=== PATIENT | female | born 1970 | race Hispanic/Latino ===

== ENCOUNTER → 2025-08-13 | Outpatient (CLI) | payer OTHER ==
--- NOTE | 2025-08-13 13:44 | HMCIMG ---
EXAM: LUMBAR SPINE 2-3VWS REASON: Lower back pain. COMPARISON: None. TECHNIQUE: 3 views of the lumbar spine were obtained. FINDINGS: There is normal appearance of the lumbar vertebral bodies. Disc interspace heights are preserved. Alignment is normal. There are no visible fractures. Soft tissues appear unremarkable. IMPRESSION: 1. No acute fracture or malalignment 2. Osteopenia
--- NOTE | 2025-08-13 13:45 | HMCIMG ---
Exam: CERVICAL SPINE 2 VIEWS REASON: Neck pain,radiculopathy TECHNIQUE: 4 views were obtained including swimmer's view.. FINDINGS: There are normal appearing vertebral bodies. Interspace heights are well preserved. There are no visible fractures. Soft tissues appear unremarkable.There is mild osteopenia. IMPRESSION: 1. No acute fracture or malalignment 2. Mild osteopenia.
--- NOTE | 2025-08-13 13:47 | HMCIMG ---
SHOULDER COMP 2+VWS RT REASON: RT shoulder pain TECHNIQUE: 2 views were obtained. FINDINGS: There is no evidence of fracture or dislocation. There is no joint effusion. The soft tissues appear unremarkable. There is no evidence of a radiopaque foreign body. There is mild osteopenia. IMPRESSION: No acute findings. Mild osteopenia
== END | disposition home or self-care (01) ==
LOC: RAH 12:02
PROVIDERS: ATTEND Internal Medicine
DX: M13.811 Other specified arthritis, right shoulder (principal); M85.89 Other specified disorders of bone density and structure, multiple sites; M25.511 Pain in right shoulder
CPT/HCPCS: 72040; 72100; 73030